=== PATIENT | male | born 1990 | race American Indian/Alaskan Native ===

== ENCOUNTER 2018-11-29 14:59 | Emergency (ER) | payer SELFPAY ==
--- NOTE | 2018-11-29 15:42 | Emergency Department Report ---
Blank Doc - Documentation Documentation: 28 y/o male taking truvada c/o of 3 week history of black stool This initial assessment/diagnostic orders/clinical plan/treatment(s) is/are subject to change based on patient's health status, clinical progression and re- assessment by fellow clinical providers in the ED. Further treatment and workup at subsequent clinical providers discretion. Patient/guardians urged not to elope from the ED as their condition may be serious if not clinically assessed and managed. Initial orders include:and morning cramps. Labs quiac
[2018-11-29 15:43] VITALS: BP 135/64
[2018-11-29 16:29] LABS: Hematocrit 47.6 % (35.5-45.6); Hemoglobin 16.4 gm/dl (11.8-15.2); Mean Corpuscular HGB Conc 35 % (32-34); Mean Corpuscular Volume 92 fl (84-94); Platelet Count 221 K/mm3 (140-440); Red Blood Count 5.16 M/mm3 (3.65-5.03); Red Cell Distribution Width 14.3 % (13.2-15.2)
[2018-11-29 16:31] LABS: Alanine Aminotransferase 32 units/L (7-56); Albumin 4.9 g/dL (3.9-5); BUN/Creatinine Ratio 10; Blood Urea Nitrogen 10 mg/dL (9-20); Calcium 9.6 mg/dL (8.4-10.2); Hemolysis Index 15
--- NOTE | 2018-11-29 19:11 | Emergency Department Report ---
ED GI Bleed HPI - General Chief complaint: Abdominal Pain Stated complaint: ABD PAIN Time Seen by Provider: 11/29/18 15:38 Source: patient Mode of arrival: Ambulatory Limitations: No Limitations - History of Present Illness Initial comments: 28-year-old male presented to the ED with lower abdominal cramping and dark stools 3 weeks. Patient states he is HIV negative, however has been taking Truvada for HIV PreP x 3 months. Patient states his abdominal cramping is worse when he wakes up in the mornings. He denies any epigastric pain, fever, nausea, vomiting, diarrhea. Patient reports intermittent constipation, however, last bowel movement was yesterday and was normal. Patient states he has intermittently taken Pepto-Bismol. States he did see on google that this could cause dark stools. But, patient states that he has noticed dark stools even when he has not taken Pepto-Bismol. Patient denies taking any blood thinners or any other medication. Denies tobacco use. Reports he drinks alcohol only occasionally. Reports marijuana use. MD complaint: melena -: week(s) (3) Location: suprapubic Radiation: none Quality: cramping Consistency: intermittent Improves with: none Worsens with: none Context: medication/supplement use Associated Symptoms: abdominal pain. denies: nausea, vomiting, fever/chills, easy bruising, other bleeding Treatments Prior to Arrival: none - Related Data Previous Rx's Medication Instructions Recorded Last Taken Type Dicyclomine [Bentyl] 20 mg PO QID PRN #20 tablet 11/29/18 Unknown Rx Allergies Allergy/AdvReac Type Severity Reaction Status Date / Time No Known Allergies Allergy Unverified 11/29/18 15:01 ED Review of Systems ROS: Stated complaint: ABD PAIN Other details as noted in HPI Comment: All other systems reviewed and negative Constitutional: denies: chills, fever Gastrointestinal: abdominal pain, constipation, melena. denies: nausea, vomiting, diarrhea ED Past Medical Hx - Past Medical History Previous Medical History?: No - Surgical History Past Surgical History?: Yes Additional Surgical History: tonsillectomy - Social History Smoking Status: Never Smoker Substance Use Type: Alcohol, Marijuana - Medications Home Medications: Home Medications Medication Instructions Recorded Confirmed Last Taken Type Dicyclomine [Bentyl] 20 mg PO QID PRN #20 tablet 11/29/18 Unknown Rx ED Physical Exam - General Limitations: No Limitations General appearance: alert, in no apparent distress - Head Head exam: Present: atraumatic, normocephalic - Eye Eye exam: Present: normal appearance, EOMI - ENT ENT exam: Present: mucous membranes moist - Neck Neck exam: Present: normal inspection - Respiratory Respiratory exam: Present: normal lung sounds bilaterally. Absent: respiratory distress - Cardiovascular Cardiovascular Exam: Present: normal rhythm, bradycardia - GI/Abdominal GI/Abdominal exam: Present: soft. Absent: distended, tenderness - Rectal Rectal exam: Present: normal inspection, normal rectal tone, heme (-) stool (stool is brown) - Extremities Exam Extremities exam: Present: normal inspection - Neurological Exam Neurological exam: Present: alert, oriented X3 - Psychiatric Psychiatric exam: Present: normal affect, normal mood - Skin Skin exam: Present: warm, dry, intact, normal color ED Course Vital Signs 11/29/18 11/29/18 15:38 19:33 Temperature 98.7 F 98.7 F Pulse Rate 56 L 56 L Respiratory 18 18 Rate Blood Pressure 135/64 O2 Sat by Pulse 98 98 Oximetry ED Medical Decision Making - Lab Data Result diagrams: 11/29/18 15:54 11/29/18 15:54 - Medical Decision Making - brown stool on exam, guiac negative - vitals nml - Hb/ Hct normal - GI follow-up given - return precautions given - Differential Diagnosis GI bleed, anemia, ulcer Critical care attestation.: If time is entered above; I have spent that time in minutes in the direct care of this critically ill patient, excluding procedure time. ED Disposition Clinical Impression: Abdominal pain, Bloody stools Disposition: - TO HOME OR SELFCARE Is pt being admited?: No Condition: Stable Instructions: Gastrointestinal Bleeding (ED), Abdominal Pain (ED) Prescriptions: Dicyclomine [Bentyl] 20 mg PO QID PRN #20 tablet PRN Reason: abdominal pain Referrals: [facility] [Provider Group] - 3-5 Days [facility] [Outside] - 3-5 Days [facility] [Outside] - 3-5 Days Time of Disposition: 19:24
[2018-11-29 19:54] LABS: Basophils % (Manual) 0 % (0.0-1.8); Eosinophils % (Manual) 0 % (0.0-4.3); Total Cells Counted 100
[2018-11-29 19:55] LABS: Anisocytosis 1+
== END 2018-11-29 19:33 | disposition home or self-care (01) ==
LOC: ED 14:59
DX: K92.1 Melena (principal); Z79.899 Other long term (current) drug therapy; Z90.89 Acquired absence of other organs
CPT/HCPCS: 36415; 80053; 83690; 85007; 85025; 99283

== ENCOUNTER 2018-12-29 23:45 | Emergency (ER) | payer SELFPAY ==
[2018-12-30 00:13] VITALS: BP 134/80
== END 2018-12-30 01:20 | disposition left against medical advice (07) ==
LOC: ED 23:45
DX: Z11.4 Encounter for screening for human immunodeficiency virus [HIV] (principal); Z53.21 Procedure and treatment not carried out due to patient leaving prior to being seen by health care provider